=== PATIENT | female | born 1995 | race Caucasian/White ===

== ENCOUNTER 2024-03-26 20:32 | Emergency (ER) | payer OTHER | END 2024-03-26 21:29 | disposition home or self-care (01) | LOC: MW.ED 20:32 | DX: I80.01 Phlebitis and thrombophlebitis of superficial vessels of right lower extremity (principal); M79.661 Pain in right lower leg; Z75.8 Other problems related to medical facilities and other health care | CPT/HCPCS: 93971-26-RT; 93971-RT; 99283 ==